=== PATIENT | female | born 1950 | race Hispanic/Latino ===

== ENCOUNTER 2016-08-18 10:21 | Inpatient (IN) | payer BC ==
--- NOTE | 2016-08-18 11:44 | Emergency Department Report ---
Chief Complaint: Extremity Injury, Upper Stated Complaint: SWELLING LYMPH NODES Time Seen by Provider: 08/18/16 11:43 - HPI History of Present Illness: This is a 65-year-old female here complaining of swelling to lymph nodes in the left arm times a couple weeks. She is complaining of increased and left upper arm swelling. Reports swelling to neck and left side of face 2 days. She is complaining of pain in her neck, had, muscles, left jaw and left ear. She says she sees Dr. De La Cruz who is her oncologist. He sent her to the hospital. She says she is scheduled for PET scan next Sunday and also biopsy of her lymph nodes and 08/22/2015. Patient has a history of breast cancer in 2010 she has double mastectomy with reconstructive surgery. Pain is 8 out of 10 and feels throbbing. Denies any fever or chills. Denies any nausea or vomiting. - ROS Review of Systems: All systems are negative unless stated in HPI above. - Exam Vital Signs: Vital Signs 08/18/16 10:58 Temperature 98.1 F Pulse Rate 71 Respiratory 19 Rate Blood Pressure 153/107 O2 Sat by Pulse 97 Oximetry Physical Exam: General: This is a 65-year-old female well-nourished well-developed that appears to be anxious. CV: Blood pressure is elevated at 153/107. S1 and S2 and regular rate and rhythm. Neck: Positive swelling to left neck laterally. Tender to palpate and no tracheal deviation. MSE screening note: Focused history and physical exam performed. Due to findings the following was ordered:see [facility] ED Medical Decision Making - Medical Decision Making Medical decision making: Patient seen by provider in triage area. Appropriate protocol activated and patient to main ED to be seen by physician. ED Disposition for MSE Condition: Stable
[2016-08-18 12:17] LABS: Basophils % (Auto) 0.6 % (0.0-1.8); Eosinophils % (Auto) 1.8 % (0.0-4.3); Hematocrit 45.9 % (30.3-42.9); Hemoglobin 15.5 gm/dl (10.1-14.3); Mean Corpuscular HGB Conc 34 % (30-34); Mean Corpuscular Hemoglobin 31 pg (28-32); Mean Corpuscular Volume 93 fl (79-97); Platelet Count 172 K/mm3 (140-440); Red Blood Count 4.95 M/mm3 (3.65-5.03); Red Cell Distribution Width 13.4 % (13.2-15.2); White Blood Count 6.7 K/mm3 (4.5-11.0)
[2016-08-18 12:28] LABS: Alanine Aminotransferase 30 units/L (7-56); Albumin 4.2 g/dL (3.9-5); Albumin/Globulin Ratio 1.4 %; Alkaline Phosphatase 49 units/L (35-129); Bilirubin,Total 0.4 mg/dL (0.1-1.2); Blood Urea Nitrogen 10 mg/dL (7-17); Calcium 9.2 mg/dL (8.4-10.2); Carbon Dioxide 26 mmol/L (22-30); Chloride 98.6 mmol/L (98-107); Glucose 88 mg/dL (65-100); Potassium 4.2 mmol/L (3.6-5.0); Sodium 137 mmol/L (137-145); Total Protein 7.1 g/dL (6.3-8.2)
[2016-08-18 12:29] LABS: INR 0.94 (0.87-1.13)
[2016-08-18 12:31] LABS: Anion Gap 17 mmol/L; Bilirubin,Direct < 0.2 mg/dL (0-0.2); Bilirubin,Indirect 0.2 mg/dL
[2016-08-18 14:09] LABS: Bilirubin,Urine NEG (Negative); Blood,Urine NEG (Negative); Ketones,Urine NEG (Negative); Leukocyte Esterase,Urine NEG (Negative); Nitrite,Urine NEG (Negative); Protein,Urine <15 mg/dL mg/dL (Negative); RBC,Urine < 1.0 /HPF (0.0-6.0); Urobilinogen,Urine < 2.0 mg/dL (<2.0); WBC,Urine < 1.0 /HPF (0.0-6.0)
[2016-08-18] MEDS ORDERED: LEVOPHED DRIP 4 MG/NS 250 ML 250 ML IV ONE (16:47)
[2016-08-18] MEDS ORDERED: FLAGYL 500 MG/100 ML 100 ML IV ONE (16:48)
[2016-08-18] MEDS ORDERED: NACL ONE (20:33)
[2016-08-18] MEDS ORDERED: PERCOCET 5/325 PO ONE (22:08)
--- NOTE | 2016-08-18 22:10 | Emergency Department Report ---
ED Extremity Problem HPI - General Chief complaint: Extremity Problem,Nontraumatic Stated complaint: SWELLING LYMPH NODES Time Seen by Provider: 08/18/16 11:43 Source: patient Mode of arrival: Ambulatory Limitations: No Limitations - History of Present Illness Initial comments: Patient is a 65-year-old female with history of breast cancer status post mastectomy, lymph node resection on the right side, multiple rounds of chemotherapy and radiation isn't in today because of left upper extremity swelling. Patient has a port in her left arm. She states that for the last 2- 3 weeks she has noticed slowly progressing swelling to her left upper extremity which got much worse in the last day. She also noticed that this has now extended to her left neck and face this morning. She states it was much worse when she woke up in the morning and has improved throughout the day. She denies any fevers, chest pain, shortness of breath, redness, warmth. She states that she can also feel her lymph nodes in the left armpit has gotten enlarged. She went and saw her cancer physician earlier this week who scheduled her for a PET scan. Severity scale (0 -10): 5 - Related Data Allergies Allergy/AdvReac Type Severity Reaction Status Date / Time No Known Allergies Allergy Unverified 08/18/16 11:04 ED Review of Systems ROS: Stated complaint: SWELLING LYMPH NODES Other details as noted in HPI Comment: All other systems reviewed and negative Constitutional: denies: chills, fever ENT: denies: throat pain Respiratory: denies: cough, SOB with exertion Cardiovascular: denies: chest pain, palpitations Gastrointestinal: denies: abdominal pain, vomiting, diarrhea Skin: denies: rash Neurological: headache. denies: weakness, numbness Psychiatric: denies: anxiety ED Past Medical Hx - Past Medical History Previous Medical History?: Yes Hx Hypertension: Yes Hx Liver Disease: Yes (Hep C) Hx of Cancer: Yes (breast) Hx Headaches / Migraines: Yes Hx COPD: Yes - Surgical History Past Surgical History?: Yes Additional Surgical History: mastectomy - Social History Smoking Status: Current Some Day Smoker Substance Use Type: Marijuana ED Physical Exam - General Limitations: No Limitations General appearance: alert - Head Head exam: Present: atraumatic - Eye Eye exam: Present: normal appearance - ENT ENT exam: Present: normal exam - Neck Neck exam: Present: other (slight swelling to the left side of the neck) - Respiratory Respiratory exam: Present: normal lung sounds bilaterally. Absent: respiratory distress, wheezes - Cardiovascular Cardiovascular Exam: Present: regular rate, normal rhythm - GI/Abdominal GI/Abdominal exam: Present: soft. Absent: distended, tenderness - Extremities Exam Extremities exam: Present: other (left upper extremity is significantly larger than the right upper extremity, left upper extremity has normal sensation, strength is 5 out of 5 proximally and distally, radial pulses 2+, capillary refill is less than 2 seconds, left axilla with multiple mildly tender lymph nodes) - Neurological Exam Neurological exam: Present: alert, oriented X3 - Psychiatric Psychiatric exam: Present: normal affect - Skin Skin exam: Present: intact ED Course Vital Signs 08/18/16 08/18/16 08/18/16 10:58 20:50 21:23 Temperature 98.1 F 98.1 F Pulse Rate 71 83 Respiratory 19 18 18 Rate Blood Pressure 153/107 Blood Pressure 173/104 [Left] O2 Sat by Pulse 97 99 Oximetry - Consultations Consultation #1: 08/18/16 23:[address] Lora who had read the CT scans, I explained to him my concern about superior vena cava syndrome given the patient's history of cancer as well as the indwelling catheter, he states that there is no signs of SVC thrombosis or compression, he states that the imaging hours not sufficient to be able to tell if there is a more proximal thrombosis of the catheter, recommends a ultrasound as the best imaging of choice. Consultation #2: 08/18/16 23:[address] Ramos, patient's oncologist, discussed the patient's presentation and explained my concern for there being still a thrombus on the indwelling catheter. She and I both agreed that the best thing for the patient is to start empiric anticoagulation and have further studies done inpatient. ED Medical Decision Making - Lab Data Result diagrams: 08/18/16 11:53 08/18/16 11:53 - Medical Decision Making Patient has a ring in place and has a history of breast cancer both of which are significant risk factors for superior vena cava syndrome. 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 Labs and CT had been ordered prior to my assessment, awaiting CT results, Percocet given for pain Critical care attestation.: If time is entered above; I have spent that time in minutes in the direct care of this critically ill patient, excluding procedure time. ED Disposition Clinical Impression: Left upper extremity swelling Disposition: OP ADMITTED IP TO THIS HOSP Is pt being admited?: Yes Condition: Serious Time of Disposition: 00:55
--- NOTE | 2016-08-18 22:44 | Cat Scan Report ---
FINAL REPORT PROCEDURE: CT NECK W CON TECHNIQUE: Computerized axial tomography of the soft tissue neck was performed following the IV injection of iodinated nonionic contrast. HISTORY: enlarge lymph nodes with lt neck swelling COMPARISON: No prior studies are available for comparison. FINDINGS: Skull and scalp: Normal. Paranasal sinuses: Normal. Nasopharynx: Normal . Oral cavity: Normal. Calcifications of the tonsils on the left. Epiglottis/vallecula: Normal . Larynx/pyriform sinuses: Normal . Thyroid gland: Normal . Lymph nodes: Left lower left neck and supraclavicular nodes measuring 0.7-1.1 cm. Salivary glands: Normal . Upper thorax: Central catheter on the left. IMPRESSION: Left lower neck and supraclavicular lymph nodes are mildly enlarged
--- NOTE | 2016-08-18 22:53 | Cat Scan Report ---
FINAL REPORT PROCEDURE: CT CHEST W CON TECHNIQUE: Computerized axial tomography of the chest was performed during the IV injection of iodinated nonionic contrast. HISTORY: enlarge lymph nodes with history of breast cancer. COMPARISON: January 05, 2016 TECHNICAL QUALITY: Satisfactory. FINDINGS: Heart and pericardium: Normal. Thoracic aorta: Normal. Pulmonary vasculature: Normal. Lymph nodes: No mediastinal or hilar lymphadenopathy. Left lower leg neck lymph nodes measuring 1.1 cm. Left axillary lymph nodes measuring 2.3 cm. Lungs: Fibrotic densities of the right upper lung. Pleural space: No effusion, thickening, or pneumothorax. Musculoskeletal structures: No significant abnormality. Bilateral breast implants. PICC on the left extends to the superior vena cava Upper abdominal structures: No significant abnormality. IMPRESSION: Left axillary and left neck lymphadenopathy. No focal infiltrate. Interstitial accentuation.
[2016-08-19] MEDS ORDERED: LOVENOX SUB-Q ONE (00:30)
--- NOTE | 2016-08-19 00:46 | History and Physical Report ---
History of Present Illness Date of examination: 08/19/16 History of present illness: 65-year-old man with a history of hypertension, COPD, migraine,hepatitis C, breast cancer comes to the emergency room with worsening swelling of the left upper extremity. The swelling started 3 weeks ago and has progressively gotten worse, extending to the neck and left side of the face. Her oncologist told her to come to the emergency room for evaluation. She admits to shortness of breath Patient denies chest pain, palpitation, cough, abdominal pain, hematochezia, dysuria, frequency, focal weakness, dysarthria, fever chills, polydipsia polyuria, hot or cold intolerance, easy bruisability, or rash or bleeding from mucosal membrane, rhinorrhea, epistaxis, earache, tinnitus, blurry vision, eye discharge, anxiety, depression. Other review of systems negative PAST SURGICAL HISTORY: Mastectomy with reconstruction, tonsillectomy, tubal ligation SOCIAL HISTORY: Admits to smoking, social alcohol use and marijuana use FAMILY HISTORY: Hypertension Medications and Allergies Allergies Allergy/AdvReac Type Severity Reaction Status Date / Time No Known Allergies Allergy Unverified 08/18/16 11:04 Home Medications Medication Instructions Recorded Confirmed Last Taken Type Apixaban [Eliquis] 5 mg PO BID #30 tablet 08/21/16 Unknown Rx Apixaban [Eliquis] 10 mg PO BID 7 Days 08/21/16 Unknown Rx HYDROcodone/APAP 5-325 [Alcova 1 each PO Q6HR PRN #12 tablet 08/21/16 Unknown Rx 5/325] Exam - Physical Exam Narrative exam: Gen. appearance: Patient lying in bed, no apparent distress HEENT: Normocephalic, atraumatic, pupils equally round and reactive to light, extraocular movement intact, and no sclericterus,. No JVD or thyromegaly or nodule,neck supple, no carotid bruit ,mucous membranes moist, no exudate or erythema Heart: S1, S2, regular rate and rhythm Lungs: Clear to auscultation bilaterally, breathing comfortable Abdomen: Positive bowel sounds, nontender, nondistended, no organomegaly Extremity: Swelling of the left upper extremity, left-sided neck and face, No edema, cyanosis, clubbing Skin: No rash, nodules, warm, dry Neuro: Oriented 3, cranial nerves II-12 intact, speech is fluent, motor and sensory intact - Constitutional Vitals: Temp Pulse Resp BP Pulse Ox 98.1 F 83 18 173/104 99 08/18/16 20:50 08/18/16 20:50 08/18/16 21:23 08/18/16 20:50 08/18/16 20:50 Results - Labs CBC & Chem 7: 08/20/16 05:18 08/20/16 05:18 Labs: Abnormal lab results 08/18/16 08/18/16 08/18/16 Range/Units 11:53 11:53 Unknown Hgb 15.5 H (10.1-14.3) gm/dl Hct 45.9 H (30.3-42.9) % Creatinine 0.5 L (0.7-1.2) mg/dL Urine pH 8.0 H (5.0-7.0) Ur Specific [place] 1.001 L (1.003-1.030) - Imaging and Cardiology CT scan - chest: report reviewed Assessment and Plan CT neck reviewed Swelling of the left upper extremity including the face and neck, rule out SVC syndrome Hypertension Breast cancer Hepatitis C COPD Migraine Admits medicine Continue with full dose Lovenox, obtain ultrasound of the left lower extremity Consult oncology, start DVT prophylaxis, IV morphine
[2016-08-19] MEDS ORDERED: APRESOLINE IV PRN (01:49)
[2016-08-19] MEDS ORDERED: MILK OF MAGNESIA PO PRN (05:06)
[2016-08-19] MEDS ORDERED: ZOFRAN IV PRN (05:06)
[2016-08-19] MEDS ORDERED: TYLENOL PO PRN (05:06)
[2016-08-19] MEDS ORDERED: DULCOLAX PR PRN (05:06)
[2016-08-19] MEDS: MORPHINE IV PRN ×2 (05:41→22:55)
[2016-08-19] MEDS ORDERED: LOVENOX SUB-Q SCH (10:00)
[2016-08-19] MEDS ORDERED: PNEUMOVAX 23 IM ONE (12:00)
[2016-08-19] MEDS ORDERED: FLUARIX QUAD 2016-2017(36 MOS+) IM ONE (12:00)
[2016-08-19] MEDS: LOVENOX SUB-Q SCH ×2 (12:51→23:13)
--- NOTE | 2016-08-19 13:19 | Event Note ---
Date: 08/19/16 Patient presented with left upper extremity and swelling left part of neck. Doppler showed DVT left subclavian vein extending to the brachial vein. She has been started on Lovenox. She was seen and examined today. Continue Lovenox. Oncologist following.
--- NOTE | 2016-08-19 13:45 | Hem/Onc Progress Note ---
Assessment and Plan Agree with Lovenox. We will set her up for biopsy of the left axillary lymph node on Sunday. We will hold Lovenox night before. Following that patient can be switched to eliquis Subjective Date of service: 08/19/16 Interval history: Patient known to me. History of breast cancer on the right breast. Now with left axillary adenopathy and left neck adenopathy. Patient started showing worsening of disease on the left arm and presented to the emergency room. Doppler does show evidence of DVT. She has been started on Lovenox. Feels a little better. Objective - Constitutional Vitals: Last Vital Signs Temp 98.0 F 08/19/16 12:32 Pulse 73 08/19/16 12:37 Resp 20 08/19/16 12:32 BP 120/85 08/19/16 12:32 Pulse Ox 94 08/19/16 12:32 General appearance: mild distress Performance status: 1-light work, ambulatory - EENT Lymph node exam: left supraclavicular, left axillary - Neck Neck: supple - Respiratory Respiratory effort: Positive: normal Respiratory: bilateral: CTA - Cardiovascular Rhythm: regular Extremities: No edema - Gastrointestinal General gastrointestinal: Present: soft
[2016-08-19] MEDS ORDERED: DUONEB 0.5 MG-3 MG/3 ML SOLN IH PRN (23:41)
[2016-08-19] MEDS ORDERED: PROVENTIL IH PRN (23:59)
[2016-08-20] MEDS: MORPHINE IV PRN (06:09)
[2016-08-20 06:13] LABS: Basophils % (Auto) 0.5 % (0.0-1.8); Eosinophils % (Auto) 1.7 % (0.0-4.3); Hematocrit 43.5 % (30.3-42.9); Hemoglobin 14.6 gm/dl (10.1-14.3); Mean Corpuscular HGB Conc 34 % (30-34); Mean Corpuscular Hemoglobin 31 pg (28-32); Mean Corpuscular Volume 92 fl (79-97); Platelet Count 132 K/mm3 (140-440); Red Blood Count 4.73 M/mm3 (3.65-5.03); Red Cell Distribution Width 13.7 % (13.2-15.2); White Blood Count 6.9 K/mm3 (4.5-11.0)
[2016-08-20 06:14] LABS: Blood Urea Nitrogen 15 mg/dL (7-17); Calcium 8.8 mg/dL (8.4-10.2); Carbon Dioxide 25 mmol/L (22-30); Chloride 100.5 mmol/L (98-107); Glucose 101 mg/dL (65-100); Potassium 4.1 mmol/L (3.6-5.0); Sodium 140 mmol/L (137-145)
[2016-08-20 06:24] LABS: Anion Gap 19 mmol/L
--- NOTE | 2016-08-20 11:47 | Progress Note ---
Assessment and Plan Assessment and plan: Acute DVT left subclavian vein extending to the left brachial vein. Started on Lovenox 1 mg/kg subcutaneous twice daily. She has been evaluated by Dr. De La Cruz her oncologist. Left axillary lymphadenopathy. For lymph node biopsy tomorrow. History of right breast cancer. Was managed by Dr. De La Cruz Hepatitis C COPD. Stable. DVT prophylaxis. On Lovenox Full CODE STATUS History Interval history: left upper extremity pain and swelling, left neck and face swelling Hospitalist Physical - Physical exam Narrative exam: Gen appearance : Not in acute distress, morbidly obese, HEENT: Swelling left part of face, atraumatic Neck: supple, no JVD. swelling left part of neck Lungs: clear to auscultation bilaterally, no crackles no wheezes Heart: S1 and S2 regular, no murmurs, rubs or gallop Abdomen: soft, non-tender, non-distended normal bowel sounds Extremities: Edema left upper ext, no clubbing or cyanosis Neuro : Awake alert oriented 3, no focal signs - Constitutional Vitals: Temp Pulse Resp BP Pulse Ox 98.5 F 96 H 18 107/75 94 08/20/16 09:05 08/20/16 09:05 08/20/16 09:05 08/20/16 09:05 08/20/16 09:05 Results - Labs CBC & Chem 7: 08/20/16 05:18 08/20/16 05:18 Labs: Laboratory Last Values WBC 6.9 K/mm3 (4.5-11.0) 08/20/16 05:18 RBC 4.73 M/mm3 (3.65-5.03) 08/20/16 05:18 Hgb 14.6 gm/dl (10.1-14.3) H 08/20/16 05:18 Hct 43.5 % (30.3-42.9) H 08/20/16 05:18 MCV 92 fl (79-97) 08/20/16 05:18 MCH 31 pg (28-32) 08/20/16 05:18 MCHC 34 % (30-34) 08/20/16 05:18 RDW 13.7 % (13.2-15.2) 08/20/16 05:18 Plt Count 132 K/mm3 (140-440) L 08/20/16 05:18 Lymph % (Auto) 8.3 % (13.4-35.0) L 08/20/16 05:18 [place] % (Auto) 5.6 % (0.0-7.3) 08/20/16 05:18 Eos % (Auto) 1.7 % (0.0-4.3) 08/20/16 05:18 Baso % (Auto) 0.5 % (0.0-1.8) 08/20/16 05:18 Lymph # 0.6 K/mm3 (1.2-5.4) L 08/20/16 05:18 [place] # 0.4 K/mm3 (0.0-0.8) 08/20/16 05:18 Eos # 0.1 K/mm3 (0.0-0.4) 08/20/16 05:18 Baso # 0.0 K/mm3 (0.0-0.1) 08/20/16 05:18 Seg Neutrophils % 83.9 % (40.0-70.0) H 08/20/16 05:18 Seg Neutrophils # 5.8 K/mm3 (1.8-7.7) 08/20/16 05:18 PT 12.5 Sec. (12.2-14.9) 08/18/16 11:53 INR 0.94 (0.87-1.13) 08/18/16 11:53 Sodium 140 mmol/L (137-145) 08/20/16 05:18 Potassium 4.1 mmol/L (3.6-5.0) 08/20/16 05:18 Chloride 100.5 mmol/L (98-107) 08/20/16 05:18 Carbon Dioxide 25 mmol/L (22-30) 08/20/16 05:18 Anion Gap 19 mmol/L 08/20/16 05:18 BUN 15 mg/dL (7-17) 08/20/16 05:18 Creatinine 0.6 mg/dL (0.7-1.2) L 08/20/16 05:18 Estimated GFR > 60 ml/min 08/20/16 05:18 BUN/Creatinine Ratio 25.00 % 08/20/16 05:18 Glucose 101 mg/dL (65-100) H 08/20/16 05:18 Calcium 8.8 mg/dL (8.4-10.2) 08/20/16 05:18 Total Bilirubin 0.4 mg/dL (0.1-1.2) 08/18/16 11:53 Direct Bilirubin < 0.2 mg/dL (0-0.2) 08/18/16 11:53 Indirect Bilirubin 0.2 mg/dL 08/18/16 11:53 AST 32 units/L (5-40) 08/18/16 11:53 ALT 30 units/L (7-56) 08/18/16 11:53 Alkaline Phosphatase 49 units/L (35-129) 08/18/16 11:53 Total Protein 7.1 g/dL (6.3-8.2) 08/18/16 11:53 Albumin 4.2 g/dL (3.9-5) 08/18/16 11:53 Albumin/Globulin Ratio 1.4 % 08/18/16 11:53 Urine Color Colorless (Yellow) 08/18/16 Unknown Urine Turbidity Clear (Clear) 08/18/16 Unknown Urine pH 8.0 (5.0-7.0) H 08/18/16 Unknown Ur Specific [place] 1.001 (1.003-1.030) L 08/18/16 Unknown Urine Protein <15 mg/dl mg/dL (Negative) 08/18/16 Unknown Urine Glucose (UA) Neg mg/dL (Negative) 08/18/16 Unknown Urine Ketones Neg mg/dL (Negative) 08/18/16 Unknown Urine Blood Neg (Negative) 08/18/16 Unknown Urine Nitrite Neg (Negative) 08/18/16 Unknown Urine Bilirubin Neg (Negative) 08/18/16 Unknown Urine Urobilinogen < 2.0 mg/dL (<2.0) 08/18/16 Unknown Ur Leukocyte Esterase Neg (Negative) 08/18/16 Unknown Urine WBC (Auto) < 1.0 /HPF (0.0-6.0) 08/18/16 Unknown Urine RBC (Auto) < 1.0 /HPF (0.0-6.0) 08/18/16 Unknown
[2016-08-20] MEDS: LOVENOX SUB-Q SCH (12:17)
[2016-08-20] MEDS: NORCO 5/325 PO PRN (17:57)
[2016-08-21] MEDS: LOVENOX SUB-Q SCH ×2 (00:05→12:00)
[2016-08-21] MEDS: NORCO 5/325 PO PRN ×2 (00:31→08:05)
[2016-08-21] MEDS ORDERED: VERSED IV ONE ×2 (08:36→08:52)
[2016-08-21] MEDS ORDERED: SUBLIMAZE ONE (08:38)
[2016-08-21] MEDS ORDERED: SUBLIMAZE IV ONE (08:52)
--- NOTE | 2016-08-21 09:13 | Hem/Onc Progress Note ---
Assessment and Plan We will follow-up on the biopsy report. Patient can have her Lovenox resumed after the biopsy and can be switched to by mouth anticoagulant's. Will discuss with Dr. shields. I have discussed the case with pathology and radiology today. Subjective Date of service: 08/21/16 Interval history: Patient known to me. History of breast cancer on the right breast. Now with left axillary adenopathy and left neck adenopathy. Patient started showing worsening of disease on the left arm and presented to the emergency room. Doppler does show evidence of DVT. She has been started on Lovenox. for axillary lymph node biopsy today. Patient is under CAT scan currently. Objective - Exam Narrative Exam: In the process of getting a biopsy of the axillary lymph node. - Constitutional Vitals: Last Vital Signs Temp 98.2 F 08/21/16 07:53 Pulse 84 08/21/16 09:00 Resp 18 08/21/16 09:00 BP 117/70 08/21/16 09:00 Pulse Ox 92 08/21/16 09:00 General appearance: no acute distress
--- NOTE | 2016-08-21 09:43 | Admit Criteria Form ---
Admission Criteria Documentation: DEEP VENOUS THROMBOSIS OF LOWER EXTREMITIES Clinical Indications for Admission to Inpatient Care ( Place 'X' for any and all applicable criteria): Admission is indicated for ANY ONE of the following (1)(2)(3)(4): [X]I. Documented extensive thrombosis (e.g., clot in vena cava or above iliofemoral bifurcation) [ ]II. Limb-threatening thrombosis (e.g., phlegmasia cerulea dolens) [ ]III. Active bleeding [ ]IV. Recent surgery (e.g., within 6 weeks) [ ]V. Active peptic ulcer disease [ ]. Thrombosis while on anticoagulation [ ]VII. [X]VIII. Appropriate monitoring and therapy cannot be provided in home or outpatient setting [ ]IX. Thrombolysis (e.g., catheter-directed) or pharmaco mechanical thrombectomy needed (3) [ ]X. Vena cava filter placement planned (3) [ ]XI. Severely diminished cardiopulmonary reserve (e.g., pulmonary hypertension) [ ]XII. Severe renal failure (e.g., GFR less than 30 mL/min/1.73m2 (0.5 mL/sec /1.73m2)) [ ]XIII. Known clotting abnormality or deficiency (antithrombin III, protein C , or protein S) [ ]XIV. History of heparin-induced thrombocytopenia [ ]XV . Personal or family history of bleeding tendency or familial bleeding disorder that requires inpatient admission rather than observation care (Also use Deep Venous Thrombosis of Lower Extremities: Observation Care as appropriate) because of ANY ONE of the following: [ ]a) Significant allergic, autoimmune (thrombocytopenia), or coagulopathic reaction occurs in response to anticoagulation [ ]b) Other significant finding or clinical condition judged not to be within the scope of observation care Extended stay beyond goal length of stay may be needed for(1)(19): [ ]a) Hemorrhage or recent surgery(3) [ ]b) Inadequate oral anticoagulation [ ]c) Recurrent thromboembolism(3) [ ]d) Heparin-induced thrombocytopenia(14) The original [facility] content created by [facility] has been revised. The portions of the content which have been revised are identified through the use of italic text or in bold, and [facility] has neither reviewed nor approved the modified material. All other unmodified content is copyright [facility]. Please see references footnoted in the original [facility] edition 2016 Admission Criteria Met: Yes
--- NOTE | 2016-08-21 11:36 | Vascular Lab Report ---
LEFT UPPER EXTREMITY VENOUS DUPLEX: REASON FOR EXAM: Left arm swelling COMMENTS ON THE LEFT: Nonocclusive age indeterminate deep venous thrombosis is found in the left proximal brachial extending into distal subclavian veins. The remaining veins visualized are freely compressible without evidence of internal echogenicity. Spontaneous and phasic flow is present proximally. COMMENTS ON THE RIGHT: The subclavian and internal jugular veins are free of thrombus. IMPRESSION: Age indeterminate most likely chronic deep venous thrombosis in the left upper extremity. Clinical correlation recommended
--- NOTE | 2016-08-21 11:47 | Discharge Summary ---
Providers - Providers Date of Admission: 08/19/16 00:43 Date of discharge: 08/21/16 Attending physician: SANDY BEEBE Primary care physician: JAKY OWENS MD Hospitalization Condition: Fair Disposition: DISCHARGED TO HOME OR SELFCARE - Discharge Diagnoses (1) Deep vein thrombosis (DVT) of left upper extremity Status: Acute (2) Left upper extremity swelling Status: Acute (3) Axillary lymphadenopathy Status: Acute (4) HTN (hypertension) Status: Acute (5) COPD (chronic obstructive pulmonary disease) Status: Acute (6) Breast cancer Status: Acute Core Measure Documentation - Palliative Care Palliative Care/ Comfort Measures: Not Applicable - Core Measures Any of the following diagnoses?: DVT/PE - VTE Discharge Requirements Deep Vein Thrombosis/Pulmonary Embolism Present on Admission: Yes Has pt received <5 days of overlap therapy or INR<2.0: Yes Anticoagulant overlap therapy prescribed at discharge: No Contraindication No Overlap Therapy order at DC: Not Indicated (Going home on Eliquis) Exam - Constitutional Vitals: Temp Pulse Resp BP Pulse Ox 98.2 F 74 20 109/78 96 08/21/16 07:53 08/21/16 09:25 08/21/16 10:00 08/21/16 09:25 08/21/16 09:25 Plan Activity: no restrictions Diet: low fat, low cholesterol, low salt Additional Instructions: 1.Follow up with PCP in 1 week. 2.Follow up with Dr. De La Cruz in 1 week including obtaining results of lymph node biopsy. Follow up with: PRIMARY CAREMD [Primary Care Provider] - 3-5 Days Prescriptions: Apixaban [Eliquis] 10 mg PO BID 7 Days Apixaban [Eliquis] 5 mg PO BID #30 tablet
--- NOTE | 2016-08-21 11:47 | Cat Scan Report ---
CT BIOPSY LYMPH NODE SUPERFICIAL LEFT: HISTORY: Breast cancer, new left axillary and left cervical lymphadenopathy. DESCRIPTION OF PROCEDURE: Informed consent was obtained. Sterile technique was utilized. Conscious sedation was accomplished with Versed and fentanyl. The patient was sedated for 20 minutes. Intraobserver time was 20 minutes. Independent cardiorespiratory monitoring by RN. Using CT guidance, four 18-gauge core biopsies were obtained from an approximate 2 cm enlarged lymph node in the left axilla. The samples were deemed adequate by the pathologist on site. No complications. IMPRESSION: Successful CT-guided biopsy of the 2 cm left axillary lymph node.
[2016-08-21 12:27] VITALS: BP 129/91
--- NOTE | 2016-08-25 08:59 | Query- General ---
Dear Date:_08/25/16 Smeller/CDS:Andre/Oc Johnson Phone#:_[phone] Exercise your independent professional judgment when responding to this query. Questions asked do not imply a particular answer is desired or expected. We greatly appreciate your clarification on this issue. Clinical Documentation States: 65Y/O Female admitted on 08/19/16 with Hx. of HTN, COPD, Breast cancer presents with worsening swelling of the left upper extremity. The swelling started 3 weeks ago and has progressively gotten worse, extending to the neck on the left side. Clinical Findings Show (include reference to source document): Pathology specimen from left axillary lymph node: Malignant cells consistent with metastatic carcinoma. Given the above clinical scenario can you please provide an appropriate diagnosis based on your knowledge of the patient: PHYSICIAN RESPONSE: Please reconcile pathology report with final diagnosis: Metastases to left axillary lymph node Present on Admission: [x ] Yes (Y) [ ] Clinically undeterminable (W) [ ]No(N) Please also document response in your Progress Notes and/or Discharge Summary and indicate if the condition was present on admission. MTDD
== END 2016-08-21 13:57 | disposition home or self-care (01) | DRG 264 ==
LOC: ED 10:21 → 4A 08-19 00:43
PROVIDERS: ADMIT Internal Medicine; ATTEND Internal Medicine
PROC: 07B63ZX Excision of Left Axillary Lymphatic, Percutaneous Approach, Diagnostic (ICD-10-PCS; principal; 2016-08-21)
DX: I82.B12 Acute embolism and thrombosis of left subclavian vein (principal); C77.3 Secondary and unspecified malignant neoplasm of axilla and upper limb lymph nodes; B19.20 Unspecified viral hepatitis C without hepatic coma; J44.9 Chronic obstructive pulmonary disease, unspecified; I10 Essential (primary) hypertension; G43.909 Migraine, unspecified, not intractable, without status migrainosus; C50.919 Malignant neoplasm of unspecified site of unspecified female breast; F17.200 Nicotine dependence, unspecified, uncomplicated; F12.90 Cannabis use, unspecified, uncomplicated; R59.9 Enlarged lymph nodes, unspecified; Z85.3 Personal history of malignant neoplasm of breast; Z90.10 Acquired absence of unspecified breast and nipple; Z98.51 Tubal ligation status; Z82.49 Family history of ischemic heart disease and other diseases of the circulatory system; Z98.890 Other specified postprocedural states
CPT/HCPCS: 36415; 38505; 70491; 71260; 77012; 80048; 80074; 81001; 85025; 85610; 88172; 88173; 88177; 88305; 88333; 88361; 90686; 90732; 96372; 99406; J1650; J2250; J2270; J3010; Q9967

== ENCOUNTER 2016-08-24 09:33 | Outpatient (CLI) | payer BC ==
--- NOTE | 2016-08-25 09:26 | PET Report ---
PET/CT:08/24/16 09:33:00 CLINICAL: Right breast cancer restaging. RADIOPHARMACEUTICAL: mCi F18-FDG. COMPARISON: CT [facility] 08/18/16 TECHNIQUE- Following intravenous injection of 15.5 millicuries F-18 FDG and an approximately 60 minute uptake period, CT and PET images from the mid skull to the upper thighs were acquired with the patient in the fasted state. No contrast was administered. The CT protocol used for this PET CT study is designed for attenuation correction and anatomic localization of PET abnormalities. This seasonal recruiter CT is not desired to produce and cannot replace, qztiw-ob-dhd-art diagnostic CT scans with specific imaging protocols for different body parts and indications. Plasma glucose at the time of this test: 91g/dl. The standardized uptake values (SUV) are normalized to patient body weight and indicate the highest activity concentration (SUV max) in a given disease site. FINDINGS: Brain--Physiologic FDG uptake in the visualized regions of the brain. Neck--Too numerous to count FDG avid left supraclavicular lymph nodes with SUV 9.4. A few small FDG avid lower left jugular lymph nodes and several FDG avid lymph nodes adjacent to the left thyroid lobe. Chest--Physiologic FDG uptake in mediastinal blood pool and myocardium. Status post bilateral mastectomy with bilateral implant reconstruction. Lungs--No abnormal uptake. No pulmonary nodule or mass. Pleura/pericardium--No abnormal uptake. Thoracic nodes--Too numerous to count FDG avid left axillary lymph nodes with the largest measuring 1.8 x 1.8 cm and SUV 9.7.. Hepatobiliary--No abnormal uptake. Liver background SUV mean, as a reference for comparing FDG studies, is 3.2 . No liver mass. Spleen--No abnormal uptake. Pancreas--No abnormal uptake. Adrenal Glands--No abnormal uptake. Kidneys/Ureters/Bladder--No abnormal uptake. Abdominopelvic Nodes--No abnormal uptake. Bowel/Peritoneum/Mesentery--No abnormal uptake. Pelvic organs--No abnormal uptake. Bones/Soft Tissues--No abnormal uptake. No suspicious bone lesions. IMPRESSION- Metastatic lymphadenopathy of the left lower neck, left supraclavicular space and left axilla. No evidence of pulmonary, hepatic or skeletal metastasis.
== END 2016-08-24 09:34 | disposition home or self-care (01) ==
LOC: PET 09:33
PROVIDERS: ATTEND Internal Medicine Hematology & Oncology
DX: C50.811 Malignant neoplasm of overlapping sites of right female breast (principal); Z90.13 Acquired absence of bilateral breasts and nipples; Z98.82 Breast implant status
CPT/HCPCS: 78815; 82962; A9552

== ENCOUNTER 2016-11-14 10:10 | Outpatient (CLI) | payer BC ==
--- NOTE | 2016-11-15 08:23 | Vascular Lab Report ---
LEFT UPPER EXTREMITY VENOUS DUPLEX: REASON FOR EXAM: Left arm swelling COMMENTS ON THE LEFT: Chronic nonocclusive deep venous thrombosis is noted in the internal jugular vein.. The remaining veins visualized are freely compressible without evidence of internal echogenicity. Spontaneous and phasic flow is present proximally. COMMENTS ON THE RIGHT: The subclavian and internal jugular veins are free of thrombus. IMPRESSION: Chronic DVT in the left internal jugular vein
== END 2016-11-14 10:11 | disposition home or self-care (01) ==
LOC: VAS 10:10
PROVIDERS: ATTEND Internal Medicine Hematology & Oncology
DX: I82.C22 Chronic embolism and thrombosis of left internal jugular vein (principal); C50.811 Malignant neoplasm of overlapping sites of right female breast

== ENCOUNTER 2016-11-23 14:53 | Outpatient (CLI) | payer BC ==
--- NOTE | 2016-11-27 10:35 | PET Report ---
PET/CT:11/23/16 14:53:00 CLINICAL: 08/24/16 RADIOPHARMACEUTICAL: 14.92mCi F18-FDG. COMPARISON: 08/24/16 PET/CT TECHNIQUE- Following intravenous injection of F-18 FDG and an approximately 60 minute uptake period, CT and PET images from the mid skull to the upper thighs were acquired with the patient in the fasted state. No contrast was administered. The CT protocol used for this PET CT study is designed for attenuation correction and anatomic localization of PET abnormalities. This service tech/welder CT is not desired to produce and cannot replace, spxmd-jy-fiq-art diagnostic CT scans with specific imaging protocols for different body parts and indications. Plasma glucose at the time of this test: 100g/dl. The standardized uptake values (SUV) are normalized to patient body weight and indicate the highest activity concentration (SUV max) in a given disease site. FINDINGS: Brain--Physiologic FDG uptake in the visualized regions of the brain. Neck--Physiologic FDG uptake . Previously described left jugular and left supraclavicular lymphadenopathy has resolved. Chest--Physiologic FDG uptake in mediastinal blood pool and myocardium. Lungs--No abnormal uptake. No pulmonary nodule or mass. Pleura/pericardium--No abnormal uptake. Thoracic nodes--Previously described left axillary lymphadenopathy has resolved. A single remaining left axillary lymph node measures 9 x 8 mm with FDG 1.7 compared to 1.8 x 1.8 cm and SUV 9.7 on the last exam. Hepatobiliary--No abnormal uptake. Liver background SUV mean, as a reference for comparing FDG studies, is 3.7 compared to 3.3 on the last exam. No liver mass. Spleen--No abnormal uptake. Pancreas--No abnormal uptake. Adrenal Glands--No abnormal uptake. Kidneys/Ureters/Bladder--No abnormal uptake. Abdominopelvic Nodes--No abnormal uptake. Bowel/Peritoneum/Mesentery--No abnormal uptake. Pelvic organs--No abnormal uptake. Bones/Soft Tissues--No abnormal uptake. Other findings: Status post bilateral mastectomy with implant reconstruction. IMPRESSION- Positive response to therapy with resolution of FDG avid lymphadenopathy. A single residual small left axillary lymph node with FDG uptake equal to background. No evidence of pulmonary, hepatic or skeletal metastasis.
== END 2016-11-23 14:54 | disposition home or self-care (01) ==
LOC: PET 14:53
PROVIDERS: ATTEND Internal Medicine Hematology & Oncology
DX: C50.811 Malignant neoplasm of overlapping sites of right female breast (principal); Z90.13 Acquired absence of bilateral breasts and nipples; Z98.82 Breast implant status; Z79.899 Other long term (current) drug therapy
CPT/HCPCS: 78815; 82962; A9552

== ENCOUNTER 2017-02-23 09:31 | Outpatient (CLI) | payer BC ==
[2017-02-23 10:14] LABS: Blood Urea Nitrogen 13 mg/dL (7-17)
--- NOTE | 2017-02-23 14:20 | Cat Scan Report ---
CT CHEST, ABDOMEN AND PELVIS WITH CONTRAST INDICATION: Breast cancer. COMPARISON: 11/23/2016 PET/CT. FINDINGS: Chest, abdomen and pelvis CT performed following oral contrast and intravenous administration of 100 cc of Omnipaque 300. CHEST: Unremarkable heart and great vessels. No effusions or size significant adenopathy, including the left axilla. Patent central airway. Bilateral breast implants. Normal thyroid. Slight biapical and bibasilar scarring. Well-expanded lungs, though fine interstitial nodularity with slight groundglass in both lower lobes as on axial images 175-220, series 2 is new and nonspecific, presumed infectious/inflammatory, amongst others. Subtle bilateral atelectasis at extreme lung bases posteriorly as on axial images 200-220 also noted. Nonspecific distal esophageal wall prominence/thickening, not excluded for gastroesophageal reflux and/or hiatal hernia, amongst others. ABDOMEN: Stable small bilateral renal cortical hypodensities/possible cysts. Otherwise unremarkable liver, spleen, gallbladder, pancreas, adrenals, nonaneurysmal abdominal aorta with atherosclerotic calcifications and IVC. No hydronephrosis, ascites or size significant adenopathy. Opacified GI tract nonobstructive and within normal limits. PELVIS: Uterus, adnexa/ovaries, urinary bladder and rectosigmoid within normal limits. No free fluid or significant adenopathy. No focal aggressive osseous lesions. Possible osteopenia. CONCLUSION: 1. Subtle nonspecific bibasilar fine interstitial nodularity now noted, as described. Please correlate. 2. Interval resolution of left axillary lymphadenopathy with various other incidental findings, as above. Thank you for the opportunity to participate in this patient's care.
--- NOTE | 2017-02-24 10:52 | Nuclear Medicine Report ---
BONE SCAN: History: Breast cancer. After injection of isotope, gamma camera imaging of the bony system was done. There is a normal uptake of isotope throughout the bony structures without areas of significantly increased or decreased uptake. Normal uptake in the urinary system is seen. IMPRESSION: Normal bone scan.
== END 2017-02-23 09:32 | disposition home or self-care (01) ==
LOC: NM 09:31
PROVIDERS: ATTEND Internal Medicine Hematology & Oncology
DX: C50.811 Malignant neoplasm of overlapping sites of right female breast (principal); J98.4 Other disorders of lung; J98.11 Atelectasis; I70.0 Atherosclerosis of aorta; I10 Essential (primary) hypertension; J44.9 Chronic obstructive pulmonary disease, unspecified; F17.200 Nicotine dependence, unspecified, uncomplicated; Z98.82 Breast implant status
CPT/HCPCS: 36415; 71260; 74177; 78306; 82565; 84520; A9503; Q9967

== ENCOUNTER 2020-07-09 08:33 | Outpatient (CLI) | payer MEDICARE, OTHER ==
--- NOTE | 2020-07-09 12:00 | Ultrasound Report ---
Ultrasound of the left axilla, 07/09/2020 CLINICAL INFORMATION / INDICATION: Recent outside PET/CT exam demonstrated a hypermetabolic mass in t he left axilla.. Patient has history of breast carcinoma. TECHNIQUE: Targeted ultrasound evaluation was performed of the area of interest. COMPARISON: PET/CT from [facility], 06/16/2020 FINDINGS: Sonographic evaluation of the left axilla was unremarkable. We were unable to identify a sonographic correlate for the hypermetabolic mass noted on recent PET/CT exam. The lack of ultrasound finding parnell s not imply that this mass is insignificant. I would still consider the hypermetabolic mass in the le ft axilla a clinically significant finding. If biopsy is clinically warranted, a CT guided biopsy may be indicated. IMPRESSION: No evidence for abnormal finding in the left axilla. We were unable to identify a sonogra phic correlate to account for the hypermetabolic mass in the left axilla identified on recent outside PET/CT exam. Follow up recommendation: Clinical correlation as to whether further evaluation of the hypermetabolic left axillary mass needs to be performed. If clinically warranted and desired, CT guided biopsy coul d be performed. A normal or "negative" report should not preclude biopsy or follow-up of a clinically suspicious find ing. Signer Name: Jocelyn Simmons MD Signed: 07/09/2020 11:55 AM Workstation Name: [id number]
== END 2020-07-09 08:34 | disposition home or self-care (01) ==
LOC: US 08:33
PROVIDERS: ATTEND Surgery
DX: N63.32 Unspecified lump in axillary tail of the left breast (principal)